=== PATIENT | female | born 1935 | race African-American/Black ===

== ENCOUNTER 2023-01-11 10:35 | Emergency (ER) | payer BC, OTHER ==
[2023-01-11 10:52] VITALS: BMI 25.7
[2023-01-11] MEDS ORDERED: ACETAMINOPHEN 1000 MG/100 ML BAG IVPB ONE (11:39)
[2023-01-11] MEDS ORDERED: SODIUM CHLORIDE 1,000 ML IV STA (11:39)
[2023-01-11] MEDS ORDERED: ACETAMINOPHEN INJECTION 100 ML IVPB ONE (12:15)
[2023-01-11 12:19] LABS: BASO % 0.6 % (0-2.0); EOS % 2.3 % (0-4.5); HEMATOCRIT 36.9 % (32.4-45.2); HEMOGLOBIN 12.2 GM/dL (10.7-15.3); LYMPH % 32.1 % (8-40); MCH 29.9 pg (25.7-33.7); MEAN CELL VOLUME 90.6 fl (80-96); MEAN PLT VOLUME 7.2 fl (7.5-11.1); MONO % 7.8 % (3.8-10.2); NEUT % 57.2 % (42.8-82.8); PLATELET COUNT 222 10^3/uL (134-434); RBC 4.07 M/mm3 (3.60-5.2); RDW 13.8 % (11.6-15.6)
[2023-01-11 12:41] LABS: ALBUMIN 3.7 g/dl (3.4-5.0); BLOOD UREA NITROGEN 16.6 mg/dL (7-18); CALCIUM 9.1 mg/dL (8.5-10.1); MAGNESIUM 2.2 mg/dL (1.8-2.4)
[2023-01-11 12:46] LABS: BILIRUBIN,TOTAL 0.7 mg/dL (0.2-1); TOT PROT 7.7 g/dl (6.4-8.2)
[2023-01-11 14:01] LABS: INR 1.04 (0.83-1.09); PROTHROMBIN TIME (PATIENT) 12.1 SEC (9.7-13.0)
[2023-01-11 14:03] LABS: ACTIVATED PTT 33.1 SECONDS (25.2-36.5)
[2023-01-11] MEDS ORDERED: LIDOCAINE 5% TOPICAL PATCH TP ONE (17:08)
[2023-01-11 17:15] VITALS: BP 140/59; PULSE 60; RESP 16; TEMP 97.3
[2023-01-11] MEDS ORDERED: LIDOCAINE 5% TOPICAL PATCH ONE (17:19)
[2023-01-11 17:50] LABS: PH,URINE 6.5 (5.0-8.0); URINE APPEARANCE CLEAR; URINE BILIRUBIN NEGATIVE (NEGATIVE); URINE COLOR YELLOW; URINE GLUCOSE (UA) NEGATIVE (NEGATIVE); URINE KETONE NEGATIVE (NEGATIVE); URINE LEUK ESTERASE NEGATIVE (NEGATIVE); URINE NITRITE NEGATIVE (NEGATIVE); URINE PROTEIN NEGATIVE (NEGATIVE); URINE UROBILINOGEN 0.2 mg/dL (0.2-1.0)
== END 2023-01-11 17:42 | disposition home or self-care (01) ==
LOC: JERFT 10:35 → JER 10:35 → JERFT 17:42
PROC: 3E033NZ Introduction of Analgesics, Hypnotics, Sedatives into Peripheral Vein, Percutaneous Approach (ICD-10-PCS; principal; 2023-01-11)
PROC: 3E0337Z Introduction of Electrolytic and Water Balance Substance into Peripheral Vein, Percutaneous Approach (ICD-10-PCS; 2023-01-11)
DX: R06.02 Shortness of breath (principal); M54.50 Low back pain, unspecified; G89.29 Other chronic pain; Z20.822 Contact with and (suspected) exposure to COVID-19
CPT/HCPCS: 0241U-QW; 36415; 71046-TC-FY; 72131-TC; 80053; 81003; 83735; 84484; 85025; 85379; 85610; 85730; 87086; 87186; 93005; 93010; 99285-25

== ENCOUNTER 2024-02-26 12:51 | Emergency (ER) | payer BC, OTHER ==
[2024-02-26 13:01] VITALS: BP 149/50; PULSE 71; RESP 18; TEMP 97.9; BMI 24.0
[2024-02-26] MEDS ORDERED: NAPROXEN 500 MG TABLET ONE (14:48)
[2024-02-26] MEDS ORDERED: METHOCARBAMOL 500 MG TABLET ONE (14:48)
[2024-02-26] MEDS ORDERED: ACETAMINOPHEN 500 MG TABLET (FP) ONE (14:49)
[2024-02-26] MEDS: NAPROXEN 250 MG TABLET PO ONE (14:52)
[2024-02-26] MEDS: METHOCARBAMOL 500 MG TABLET PO ONE (14:52)
[2024-02-26] MEDS: NAPROXEN 375 MG TABLET PO ONE (14:52)
[2024-02-26] MEDS: ACETAMINOPHEN 500 MG TABLET (FP) PO ONE (14:52)
== END 2024-02-26 15:24 | disposition home or self-care (01) ==
LOC: JERFT 12:51
DX: M62.838 Other muscle spasm (principal); M25.511 Pain in right shoulder
CPT/HCPCS: 99283-25

== ENCOUNTER 2024-08-09 12:10 | Emergency (ER) | payer BC, OTHER ==
[2024-08-09 12:24] VITALS: BP 139/68; PULSE 87; RESP 16; TEMP 97.7; BMI 23.6
[2024-08-09] MEDS ORDERED: ACETAMINOPHEN 325 MG TABLET (FP) ONE (12:57)
[2024-08-09] MEDS ORDERED: LIDOCAINE 4% PATCH TP ONE (12:58)
[2024-08-09] MEDS ORDERED: BACLOFEN 10 MG TABLET (FP) ONE (12:58)
[2024-08-09] MEDS: ACETAMINOPHEN 325 MG TABLET (FP) PO ONE (13:01)
[2024-08-09] MEDS: BACLOFEN 10 MG TABLET (FP) PO ONE (13:01)
[2024-08-09] MEDS: LIDOCAINE 4% PATCH TP ONE (13:01)
[2024-08-09] MEDS ORDERED: LIDOCAINE PATCH REMOVAL MC SCH (22:00)
== END 2024-08-09 14:45 | disposition home or self-care (01) ==
LOC: JER 12:10
DX: M43.6 Torticollis (principal)
CPT/HCPCS: 99283-25; J0475

== ENCOUNTER 2024-10-13 11:03 | Emergency (ER) | payer BC, OTHER ==
[2024-10-13 11:14] VITALS: BP 137/58; PULSE 79; RESP 16; TEMP 97.6; BMI 24.2
[2024-10-13] MEDS ORDERED: LIDOCAINE 4% PATCH TP ONE (11:57)
[2024-10-13] MEDS ORDERED: ACETAMINOPHEN 325 MG TABLET (FP) ONE (11:58)
[2024-10-13] MEDS: LIDOCAINE 4% PATCH TP ONE (11:59)
[2024-10-13] MEDS: ACETAMINOPHEN 325 MG TABLET (FP) PO ONE (12:00)
[2024-10-13] MEDS ORDERED: LIDOCAINE PATCH REMOVAL MC ONE (22:00)
== END 2024-10-13 13:59 | disposition home or self-care (01) ==
LOC: JER 11:03
DX: M25.561 Pain in right knee (principal); Z96.651 Presence of right artificial knee joint
CPT/HCPCS: 73562-TC-RT-FY; 99283-25